=== PATIENT | female | born 1990 | race Caucasian/White ===

== ENCOUNTER 2019-08-02 07:49 | Emergency (ER) | payer OTHER ==
[~2019-08-02] VITALS: Ht 175.3 cm; Wt 63.6 kg
[2019-08-02 09:58] VITALS: BP 114/74
--- NOTE | 2019-08-02 10:00 | NUR ---
BREAKING PRIMARY RN, PT IS AWAITING YUKI PUGAS
[2019-08-02] MEDS ORDERED: AMOX-101 PO (11:00)
[2019-08-02] MEDS ORDERED: PRED20TA PO (11:00)
== END 2019-08-02 13:51 | disposition home or self-care (01) ==
LOC: ER 07:50
DX: J32.0 Chronic maxillary sinusitis (principal); J32.1 Chronic frontal sinusitis; J02.9 Acute pharyngitis, unspecified; R19.7 Diarrhea, unspecified; R09.89 Other specified symptoms and signs involving the circulatory and respiratory systems; Z79.2 Long term (current) use of antibiotics; Z79.899 Other long term (current) drug therapy
CPT/HCPCS: 93005; 99283; 99284